=== PATIENT | male | born 1975 | race Caucasian/White ===

== ENCOUNTER → 2020-12-03 | Outpatient (CLI) | payer BC ==
--- NOTE | 2020-12-03 14:53 | CT ---
EXAMINATION TYPE: CT abdomen pelvis w con DATE OF EXAM: 12/03/2020 COMPARISON: None. HISTORY: Abdominal/pelvic pain. CT DLP: 1521 mGycm, Automated Exposure Control for Dose Reduction was Utilized. CONTRAST: CT scan of the abdomen and pelvis is performed with oral and with IV Contrast, patient injected with 100 mL of Isovue 300. FINDINGS: LUNG BASES: No significant abnormality is appreciated. LIVER/GB: No significant abnormality is appreciated. PANCREAS: No significant abnormality is seen. SPLEEN: No significant abnormality is seen. ADRENALS: No significant abnormality is seen. KIDNEYS: Symmetric cortical medullary uptake and excretion with mild right-sided hydronephrosis. Ther e are distal right pelvic phlebolith. There is moderately distended bladder. No obstructing calculi s een. BOWEL: Normal contrast filled appendix. Oral contrast reaches level of the distal left colon. No susp icious small or large bowel dilatation is seen. Some diverticula in the redundant sigmoid colon witho ut CT evidence for acute diverticulitis. PROSTATE/SEMINAL VESICLES: Prostate upper limits of normal in size. There is 6 mm round low density f ocus centrally could reflect focal urethral prominence or tiny prostatic cyst. LYMPH NODES: No greater than 1cm abdominal or pelvic lymph nodes are appreciated. OSSEOUS STRUCTURES: Slight grade 1 retrolisthesis of L3 on L4 and L4 on L5. Moderate disc space narro wing and vacuum disc phenomenon L3-L4 level. Mild disc space narrowing L4-L5 and L5-S1 levels. OTHER: Small to moderate-size fat-containing umbilical hernia. Moderate-size fat containing left ingu inal hernia. IMPRESSION: Mild to moderately distended bladder likely accounting for mild right-sided hydronephrosi s. No delayed excretion is seen. No suspicious acute findings otherwise seen.
--- NOTE | 2020-12-04 11:09 | ECHOF ---
Referral Reason:R07.9 Chest Pain, R10.9 Abd/Pelvic Pain MEASUREMENTS -------- HEIGHT: 182.9 cm WEIGHT: 104.3 kg BP: RVIDd: 3.1 cm (< 3.3) IVSd: 1.0 cm (0.6 - 1.1) LVIDd: 5.1 cm (3.9 - 5.3) LVPWd: 1.0 cm (0.6 - 1.1) IVSs: 1.6 cm LVIDs: 3.4 cm LVPWs: 1.6 cm LAESV Index (A-L): 27.52 ml/m Ao Diam: 3.5 cm (2.0 - 3.7) AV Cusp: 2.4 cm (1.5 - 2.6) LA Diam: 3.9 cm (2.7 - 3.8) MV EXCURSION: 16.659 mm (> 18.000) MV EF SLOPE: 181 mm/s (70 - 150) EPSS: 0.6 cm MV E Bala: 0.69 m/s MV DecT: 195 ms MV A Bala: 0.43 m/s MV E/A Ratio: 1.59 RAP: 5.00 mmHg RVSP: 18.11 mmHg FINDINGS -------- This was a technically good study. The left ventricular size is normal. Left ventricular wall thickness is normal. Overall left vent ricular systolic function is normal with, an EF between 55 - 60 %. The diastolic filling pattern is normal for the age of the patient 5.93. The right ventricle is normal in size. The left atrial size is normal. Normal LA size by volume 22+/-6 ml/m2. The right atrial size is normal. The aortic valve is trileaflet and appears structurally normal. The mitral valve is normal. There is trace mitral regurgitation. The tricuspid valve appears structurally normal. Mild tricuspid regurgitation present. Right vent ricular systolic pressure is normal at < 35 mmHg. There is no pulmonic regurgitation present. The aortic root size is normal. Normal inferior vena cava with normal inspiratory collapse consistent with estimated right atrial pre ssure of 5 mmHg. There is no pericardial effusion. CONCLUSIONS -------- 1. The left ventricular size is normal. 2. Left ventricular wall thickness is normal. 3. Overall left ventricular systolic function is normal with, an EF between 55 - 60 %. 4. The diastolic filling pattern is normal for the age of the patient 5.93 5. There is trace mitral regurgitation. 6. Mild tricuspid regurgitation present. 7. There is no pericardial effusion. MULTIMEDIA ASSISTANT: Leela Armstrong RDCS
== END | disposition home or self-care (01) ==
LOC: RADECHMAIN 10:34
PROVIDERS: ATTEND Family Medicine
DX: I08.1 Rheumatic disorders of both mitral and tricuspid valves (principal)
CPT/HCPCS: 74177; 93306